=== PATIENT | female | born 1965 | race Caucasian/White ===

== ENCOUNTER 2017-01-08 09:15 | Emergency (ER) | payer MEDICAID, OTHER ==
[~2017-01-08] VITALS: Ht 157.5 cm; Wt 76.3 kg
[2017-01-08 09:18] VITALS: Ht 157.5 cm; Wt 76.3 kg
[2017-01-08] MEDS ORDERED: TETRACAINE 0.5% 15 ML OPH BOTH EYES ONE (11:00)
[2017-01-08] MEDS ORDERED: predniSONE 20 MG TAB PO ONE (11:00)
[2017-01-08] MEDS ORDERED: DIPHENHYDRAMINE 25 MG CAP PO ONE (11:00)
[2017-01-08] MEDS ORDERED: FLUORESCEIN STRIP BOTH EYES ONE (11:00)
[2017-01-08] MEDS ORDERED: PRED20TA PO (11:52)
[2017-01-08] MEDS ORDERED: NAPH15DR OP (11:52)
[2017-01-08] MEDS ORDERED: CETI10CA PO (11:52)
--- NOTE | 2017-01-08 11:55 | ERD ---
ER Documentation Chief Complaint Date/Time DATE: 01/08/17 TIME: 11:53 Chief Complaint NELY EYE ITCHING AND DISCHARGE X 1 WEEK HPI This 51-year-old female complains of bilateral eye redness and itching for the last week. She said this before and usually treats himself with allergy drops which usually help but not this time. She denies any visual changes, cough, shortness breath, nasal congestion. She may have a slight amount of clear discharge but no green discharge. She denies any known exposures to potential allergens or new pets, medications, plants or known exposures ROS All systems reviewed and are negative except as per history of present illness. Medications Home Meds Active Scripts Naphazoline Hcl/Phenir Mal (Naphcon-A Eye Drops) 15 Ml Drops, 15 ML OP QID for 7 Days, BOTTLE Prov:MAXIMUS SOLORIO MD 01/08/17 Cetirizine Hcl* (Zyrtec*) 10 Mg Capsule, 10 MG PO DAILY, #15 TAB.CHEW Prov:MAXIMUS SOLORIO MD 01/08/17 Prednisone* (Prednisone*) 20 Mg Tab, 40 MG PO DAILY for 4 Days, TAB Prov:MAXIMUS SOLORIO MD 01/08/17 Allergies Allergies: Coded Allergies: No Known Allergy (Unverified , 01/08/17) Physical Exam Vitals Vital Signs Date Time Temp Pulse Resp B/P Pulse Ox O2 Delivery O2 Flow Rate FiO2 01/08/17 09:18 98.2 85 18 138/85 99 Physical Exam Const: [] Alert, [id number]-aeoqyhupy. Head: Atraumatic Eyes: Eyes are PERRLA and extraocular movements intact. Slight bilateral scleral redness. There is some inflammation in upper and lower lids periorbital area without warmth, induration, swelling, or proptosis, abnormal eye movements. There is no appreciable fluorescein uptake. Visual acuity shows no acute abnormalities per ENT: Normal External Ears, Nose and Mouth. Neck: Full range of motion..~ No meningismus. Resp: Clear to auscultation bilaterally Cardio: Regular rate and rhythm, no murmurs Abd: Soft, non tender, non distended. Normal bowel sounds Skin: No petechiae or rashes Back: No midline or flank tenderness Ext: No cyanosis, or edema Neur: Awake and alert Psych: Normal Mood and Affect Results 24 hrs Current Medications Medications (Trade) Dose Ordered Sig/Harika Route PRN Reason Start Time Stop Time Status Last Admin Dose Admin Prednisone (Prednisone) 40 mg ONCE ONCE PO 01/08/17 11:00 01/08/17 11:01 DC 01/08/17 11:06 Diphenhydramine HCl (Benadryl) 25 mg ONCE ONCE PO 01/08/17 11:00 01/08/17 11:01 DC 01/08/17 11:06 Tetracaine HCl (Tetracaine 0.5% Oph) 1 drop ONCE ONCE BOTH EYES 01/08/17 11:00 01/08/17 11:01 DC Fluorescein Sodium (Lzsdn-Y-Vreem) 1 strip ONCE ONCE BOTH EYES 01/08/17 11:00 01/08/17 11:01 DC Procedures/MDM Patient presents with signs and symptoms of likely allergic conjunctivitis. There is no evidence of orbital cellulitis, threats to vision, signs or symptoms to suggest acute glaucoma, retinal artery ischemia, optic neuritis, additional emergencies. She will be treated with Naphcon, short course prednisone and Zyrtec and instructions to follow-up with primary doctor environmental engineer scientist for persistent symptoms. The patient was stable with no new complaints during the ER course. Clinically, there is no current evidence to suggest meningitis, sepsis, acute abdomen, pneumonia, acute coronary syndrome, pulmonary embolism, or any other emergent condition appearing to require further evaluation or hospitalization. The patient should certainly return for any new or worsening symptoms per the aftercare instructions. They should otherwise follow-up with her primary care doctor for reevaluation this week. Departure Diagnosis: Primary Impression: Conjunctivitis Conjunctivitis type: unspecified Laterality: bilateral Qualified Code: H10.9 - Conjunctivitis of both eyes, unspecified conjunctivitis type Condition: Stable Patient Instructions: Conjunctivitis, Allergic Referrals: [facility] Hours: Mon - Fri 9:00 AM - 5:00 PM Additional Instructions: Symptoms appear to be likely due to allergic reaction. Apply cold compresses at home. See ophthalmology for persistent symptoms. Return for fevers, new or worsening symptoms MAXIMUS SOLORIO MD Jan 08, 2017 11:55
== END 2017-01-08 12:00 | disposition home or self-care (01) ==
LOC: FTE 09:15
DX: H10.9 Unspecified conjunctivitis (principal)
CPT/HCPCS: J7512; Z7502; Z7610; 99283

== ENCOUNTER 2019-02-01 16:46 | Emergency (ER) | payer MEDICAID ==
[~2019-02-01] VITALS: Ht 172.7 cm; Wt 87.4 kg
[~2019-02-01 16:46] MED LIST: CETI10CA PO; NAPH15DR OP; PRED20TA PO
[2019-02-01 16:58] VITALS: Ht 172.7 cm; Wt 87.4 kg
--- NOTE | 2019-02-01 19:18 | ERD ---
ER Documentation Chief Complaint Chief Complaint Complains of right arm and shoulder pain after a fall HPI This is a 53-year-old female with a history of breast cancer who presents ED with right elbow and right forearm pain status post ground level fall that occurred earlier today. Patient states that she was walking for the 711 she excellently tripped on something in the middle of and I will falling on an outstretched hand. Patient did not hit head and had no loss of consciousness with this fall. Patient admits to some painful range of motion with elbow. Denies decreased range of motion, tingling, numbness, lack sensation, headache, worst headache of life, dizziness, lightheadedness, blurred vision, changes in vision, other symptoms. Denies history of IV drug abuse. ROS All systems reviewed and are negative except as per history of present illness. Medications Home Meds Active Scripts Naphazoline Hcl/Phenir Mal (Naphcon-A Eye Drops) 15 Ml Drops, 15 ML OP QID for 7 Days, BOTTLE Prov:MAXIMUS SOLORIO MD 01/08/17 Cetirizine Hcl* (Zyrtec*) 10 Mg Capsule, 10 MG PO DAILY, #15 TAB.CHEW Prov:MAXIMUS SOLORIO MD 01/08/17 Prednisone* (Prednisone*) 20 Mg Tab, 40 MG PO DAILY for 4 Days, TAB Prov:MAXIMUS SOLORIO MD 01/08/17 Allergies Allergies: Coded Allergies: No Known Allergy (Unverified , 01/08/17) PMhx/Soc Medical and Surgical Hx: pt denies Medical Hx, pt denies Surgical Hx Hx Alcohol Use: No Hx Substance Use: No Hx Tobacco Use: No Smoking Status: Never smoker FmHx Family History: No diabetes Physical Exam Vitals Vital Signs Date Temp Pulse Resp B/P (MAP) Pulse Ox O2 O2 Flow FiO2 Time Delivery Rate 02/01/19 98.4 81 20 147/93 96 16:58 (111) Physical Exam Const: No acute distress Head: Atraumatic Eyes: Normal Conjunctiva ENT: Normal External Ears, Nose and Mouth. Neck: Full range of motion. No meningismus. Resp: Clear to auscultation bilaterally Cardio: Regular rate and rhythm, no murmurs Ext: No cyanosis, or edema Upper Extremity -right Skin: No laceration, or evidence of external trauma Compartments: Soft Motor: Full active range of motion shoulder/elbow/wrist/hand Sensation: Intact shoulder/pinky/middle finger/thumb web space Bones: Mild tenderness palpation along the olecranon posterior, nontender humerus//forearm/wrist/hand Snuffbox: Nontender Joints: No effusion Pulses/Perfusion: 2+ radial, Capillary refill < 2 seconds Radial ulnar median nerve tested for sensory motor function with no deficit Neur: Awake and alert Psych: Normal Mood and Affect Results 24 hrs Current Medications Medications Dose Sig/Harika Start Time Status Last (Trade) Ordered Route PRN Stop Time Admin Dose Reason Admin Ibuprofen 600 mg ONCE ONCE 02/01/19 DC 02/01/19 (Motrin) PO 19:30 19:08 02/01/19 19:31 Procedures/MDM EKG, MONITORS, & DIAGNOSTIC IMAGING: [place] [address] Radiology Main Line: [phone] DIAGNOSTIC IMAGING REPORT Patient: NNEKA BAER : 1965 Age: 53 Sex: F MR #: [id number] DOS: 02/01/19 1901 Ordering MD: BRIGETTE ÁLVAREZ PA-C Location: [facility] Room/Bed: PROCEDURE: XR Elbow. CLINICAL INDICATION: Right elbow pain TECHNIQUE: Three views of the right elbow are available for review COMPARISON: None available FINDINGS: No acute fracture or dislocation is seen. No radiopaque foreign body is identified. 2 mm posterior elbow osteophyte is noted. No fat pad sail sign is identified to indicate a hemarthrosis. There is no significant soft tissue swelling. IMPRESSION: 1. No acute fracture or dislocation. 2. 2 mm posterior elbow osteophyte. RPTAT: HH .Kadi Alvaardo MD, MD Date Time Electronically viewed and signed by .Kadi Alvarado MD, MD on 02/01/2019 19:48 .N/ CC: BRIGETTE ÁLVAREZ PA-C [id number] [place] [address] Radiology Main Line: [phone] DIAGNOSTIC IMAGING REPORT Patient: NNEKA BAER : 1965 Age: 53 Sex: F MR #: [id number] DOS: 02/01/19 1901 Ordering MD: BRIGETTE ÁLVAREZ PA-C Location: [facility] Room/Bed: PROCEDURE: XR Forearm. CLINICAL INDICATION: Pain. TECHNIQUE: AP and lateral views of the right forearm were obtained. COMPARISON: No prior studies are available for comparison. FINDINGS: There is no acute fracture or dislocation. Mild diffuse soft tissue swelling is noted. IMPRESSION: 1. No acute fracture or dislocation. 2. Mild diffuse soft tissue swelling. RPTAT: HH .Kadi Alvarado MD, MD Date Time Electronically viewed and signed by .Kadi Alvarado MD, MD on 02/01/2019 19:47 .N/ CC: BRIGETTE ÁLVAREZ PA-C [id number] ER COURSE: The patient was given ibuprofen The medication was well tolerated and the patient reports improvement in symptoms. The patient was stable throughout ED course. I kept the patient and/or family informed of laboratory and diagnostic imaging results throughout the emergency room course. The patient was promptly evaluated and a treatment plan was devised based on H&P and other data. This plan was discussed with the patient who agreed and had no further questions or concerns prior to discharge. MEDICAL DECISION MAKING: This is a 53-year-old female with a history of breast cancer presents ED with right elbow and right forearm pain status post Fall that occurred earlier today. X-rays are unremarkable for acute fracture dislocation. This is likely a contusion or muscle sprain. History and physical examination other data not consistent with emergent processes including but not limited to fracture, dislocation, tendon rupture, ischemia, neurovascular injury, compartment syndrome, septic joint, avascular necrosis, osteomyelitis, necrotizing fasciitis, septic joint, septic arthritis, or other emergent conditions. Patient's vitals are stable and can be managed outpatient with close follow-up. Advised patient to follow-up with primary care in the next 48 hours. Return to ED with any worsening symptoms. DISPOSITION PLAN: We discussed follow up with the patient's primary care doctor within 24 to 48 ho urs. Patient counseled regarding my diagnostic impression and care plan. Prior to discharge all questions answered. Pt agrees with treatment plan and understands strict return precautions. Precautionary instructions provided including instructions to return to the ER if not improving or for any worsening or changing symptoms or concerns. SPECIALIST FOLLOW UP RECOMMENDED: None Patient has been advised to follow up with primary care in 1-2 days. Disclaimer: Inadvertent spelling and grammatical errors are likely due to EHR/dictation software use and do not reflect on the overall quality of patient care. Also, please note that the electronic time recorded on this note does not necessarily reflect the actual time of the patient encounter. Departure Diagnosis: Primary Impression: Injury of upper extremity Encounter type: initial encounter Laterality: right Qualified Codes: S49.91XA - Unspecified injury of right shoulder and upper arm, initial encounter Condition: Stable Patient Instructions: Contusion, Elbow, Sprain Elbow Referrals: [facility] Additional Instructions: Patient advised to return to the ED immediately for new or worsening symptoms. Patient advised to follow up with primary care provider in the next 24-48 hours. Patient verbalized understanding and agrees with treatment plan and course of action. If patient has no primary care they may follow up with one of the community clinics listed on the following page or one of the options listed below [facility] [address] [place] [id number] or [facility] [address] [place] [address] or [facility] [address] [place] [address] BRIGETTE ÁLVAREZ PA-C Feb 01, 2019 19:18
[2019-02-01] MEDS ORDERED: IBUPROFEN 600 MG TAB PO ONE (19:30)
[2019-02-01] MEDS ORDERED: IBUP-1542 PO (19:53)
[2019-02-01 20:02] VITALS: BP 138/89; PULSE 72; RESP 16
== END 2019-02-01 20:03 | disposition home or self-care (01) ==
LOC: FTE 16:46
DX: S49.91XA Unspecified injury of right shoulder and upper arm, initial encounter (principal); W01.0XXA Fall on same level from slipping, tripping and stumbling without subsequent striking against object, initial encounter; Y92.9 Unspecified place or not applicable; Z85.3 Personal history of malignant neoplasm of breast
CPT/HCPCS: 73080; 73090; Z7502; Z7610

== ENCOUNTER 2019-02-28 09:38 | Emergency (ER) | payer MEDICAID ==
[~2019-02-28] VITALS: Ht 170.2 cm; Wt 89.1 kg
[~2019-02-28 09:38] MED LIST changes: +IBUP-1542 PO
[2019-02-28 09:44] VITALS: Ht 170.2 cm; Wt 89.1 kg
[2019-02-28] MEDS ORDERED: KETOROLAC 30 MG INJ IM STA (09:47)
[2019-02-28] MEDS ORDERED: morphine 4 MG/ML VIAL IM STA (09:47)
[2019-02-28] MEDS ORDERED: ONDANSETRON (ODT) 4 MG TAB ODT STA (09:47)
--- NOTE | 2019-02-28 10:38 | ERD ---
ER Documentation Chief Complaint Chief Complaint RIGHT LOWER BACK PAIN AFTER BENDING OVER TO PICK SOMETHING UP AT WORK HPI This is a 53-year-old female presents to the ER for evaluation of lower back pain. The patient states she was at work and bent over to pick something up and when she stood up she felt a sharp pain in the right lower back which radiates down the right leg. The patient denies any numbness or tingling in the lower extremities, denies any loss of bowel or bladder control and came to the ER for evaluation. She describes her pain as a sharp pain worse with movement of the right lower extremity. ROS All systems reviewed and are negative except as per history of present illness. Medications Home Meds Active Scripts Ibuprofen* (Motrin*) 600 Mg Tab, 600 MG PO Q6, #30 TAB Prov:BRIGETTE ÁLVAREZ PA-C 02/01/19 Naphazoline Hcl/Phenir Mal (Naphcon-A Eye Drops) 15 Ml Drops, 15 ML OP QID for 7 Days, BOTTLE Prov:MAXIMUS SOLORIO MD 01/08/17 Cetirizine Hcl* (Zyrtec*) 10 Mg Capsule, 10 MG PO DAILY, #15 TAB.CHEW Prov:MAXIMUS SOLORIO MD 01/08/17 Prednisone* (Prednisone*) 20 Mg Tab, 40 MG PO DAILY for 4 Days, TAB Prov:MAXIMUS SOLORIO MD 01/08/17 Allergies Allergies: Coded Allergies: No Known Allergy (Unverified , 01/08/17) PMhx/Soc History of Surgery: Yes (BILATERAL MASTECTOMY, VANESSA) Anesthesia Reaction: No Hx Neurological Disorder: No Hx Respiratory Disorders: No Hx Cardiac Disorders: No Hx Psychiatric Problems: No Hx Miscellaneous Medical Probl: Yes (BREAST CA) Hx Alcohol Use: No Hx Substance Use: No Hx Tobacco Use: No Smoking Status: Never smoker Physical Exam Vitals Vital Signs Date Temp Pulse Resp B/P (MAP) Pulse Ox O2 O2 Flow FiO2 Time Delivery Rate 02/28/19 98.3 70 18 139/83 98 09:44 (101) Physical Exam Const: No acute distress Head: Atraumatic Eyes: Normal Conjunctiva ENT: Normal External Ears, Nose and Mouth. Neck: Full range of motion. No meningismus. Resp: Clear to auscultation bilaterally Cardio: Regular rate and rhythm, no murmurs Abd: Soft, non tender, non distended. Normal bowel sounds Skin: No petechiae or rashes Back: No midline or flank tenderness Ext: No cyanosis, or edema Neur: Positive straight leg raise at 15 degrees on the right, awake and alert Psych: Normal Mood and Affect Results 24 hrs Current Medications Medications Dose Sig/Harika Start Time Status Last (Trade) Ordered Route PRN Stop Time Admin Dose Reason Admin Ondansetron 4 mg ONCE STAT 02/28/19 DC 02/28/19 HCl (Zofran ODT 09:47 02/28/19 10:00 Odt) 09:48 Ketorolac 30 mg ONCE STAT 02/28/19 DC 02/28/19 Tromethamine IM 09:47 02/28/19 10:05 (Toradol) 09:48 Morphine 4 mg ONCE STAT 02/28/19 DC 02/28/19 Sulfate IM 09:47 02/28/19 10:05 (morphine) 09:48 Procedures/MDM This is a 53-year-old female presents to the ER for evaluation of a lower back pain. The patient states she bent forward and when she stood up she did have sharp pain in the back which radiated on the right leg. She did have a positive straight leg raise on my examination. The patient was given IM Toradol, IM or Zofran. The patient states she is feeling better is likely suffering from lumbar strain and will be discharged home with a prescription for Motrin, [place]. Departure Diagnosis: Primary Impression: Acute lumbar myofascial strain Additional Impression: Sciatica Condition: Stable ZINA SMITH DO Feb 28, 2019 10:38
[2019-02-28] MEDS ORDERED: HYDR-4011 PO (10:39)
[2019-02-28] MEDS ORDERED: IBUP800T48 PO (10:39)
[2019-02-28] MEDS ORDERED: ANAS1TAB PO (11:02)
[2019-02-28 11:37] VITALS: BP 126/71; PULSE 54; RESP 16
== END 2019-02-28 12:00 | disposition home or self-care (01) ==
LOC: E/R 09:38
DX: S39.012A Strain of muscle, fascia and tendon of lower back, initial encounter (principal); M54.41 Lumbago with sciatica, right side; X50.1XXA Overexertion from prolonged static or awkward postures, initial encounter; Y92.89 Other specified places as the place of occurrence of the external cause; Z85.3 Personal history of malignant neoplasm of breast
CPT/HCPCS: 96372; J1885; J2270; Z7502; Z7610